=== PATIENT | male | born 1980 | race African-American/Black ===

== ENCOUNTER 2017-12-15 13:11 | Emergency (ER) | payer SELFPAY ==
[~2017-12-15] VITALS: Ht 175.3 cm; Wt 59.0 kg
[2017-12-15 18:40] VITALS: BP 137/75
== END 2017-12-15 18:42 | disposition home or self-care (01) ==
LOC: ER 15:53
DX: J06.9 Acute upper respiratory infection, unspecified (principal); M60.9 Myositis, unspecified; R50.9 Fever, unspecified; F12.10 Cannabis abuse, uncomplicated
CPT/HCPCS: 71045; 87804; 99285

== ENCOUNTER 2022-05-17 15:44 | Emergency (ER) | payer SELFPAY ==
[~2022-05-17] VITALS: Ht 167.6 cm; Wt 75.0 kg
[2022-05-17 16:02] VITALS: BP 141/105
[2022-05-17] MEDS ORDERED: KETOROLAC 60MG/2ML VIAL IM ONE (19:00)
[2022-05-17] MEDS ORDERED: T3 PO (22:07)
[2022-05-17] MEDS ORDERED: IBUP-2028 PO (22:07)
[2022-05-17] MEDS: KETOROLAC 30MG/ML VIAL IM NR ×2 (22:40→23:10)
== END 2022-05-17 23:21 | disposition home or self-care (01) ==
LOC: ER 15:44
DX: M54.2 Cervicalgia (principal); M25.511 Pain in right shoulder
CPT/HCPCS: 72125; 73030; 96372; 99284; J1885; Z7610

== ENCOUNTER 2022-07-22 20:00 | Emergency (ER) | payer SELFPAY ==
[~2022-07-22] VITALS: Ht 172.7 cm; Wt 59.0 kg
[~2022-07-22 20:00] MED LIST: IBUP-2028 PO; T3 PO
[2022-07-22] MEDS ORDERED: IBUPROFEN 600MG TABLET PO ONE (22:45)
[2022-07-22 22:47] VITALS: BP 135/91
[2022-07-23] MEDS ORDERED: NAPR-681 MT (00:28)
== END 2022-07-23 00:38 | disposition home or self-care (01) ==
LOC: ER 20:16
DX: S49.91XA Unspecified injury of right shoulder and upper arm, initial encounter (principal); V69.9XXA Occupant (driver) (passenger) of heavy transport vehicle injured in unspecified traffic accident, initial encounter; Y93.89 Activity, other specified; Y92.89 Other specified places as the place of occurrence of the external cause; Y99.8 Other external cause status
CPT/HCPCS: 71045; 73030; 99284; A4565